=== PATIENT | female | born 1960 | race Caucasian/White ===

== ENCOUNTER 2023-06-10 18:17 | Emergency (ER) | payer BC, SELFPAY | END 2023-06-10 19:25 | disposition home or self-care (01) | LOC: NAV ERS 18:17 | DX: R61 Generalized hyperhidrosis (principal); R25.1 Tremor, unspecified; E11.649 Type 2 diabetes mellitus with hypoglycemia without coma; I10 Essential (primary) hypertension; E78.00 Pure hypercholesterolemia, unspecified; E03.9 Hypothyroidism, unspecified; K21.9 Gastro-esophageal reflux disease without esophagitis; Z79.01 Long term (current) use of anticoagulants; Z79.899 Other long term (current) drug therapy; Z79.84 Long term (current) use of oral hypoglycemic drugs; Z86.711 Personal history of pulmonary embolism; Z86.718 Personal history of other venous thrombosis and embolism | CPT/HCPCS: 36416; 93005 ==

== ENCOUNTER 2023-12-06 19:01 | Emergency (ER) | payer BC ==
[2023-12-06] MEDS ORDERED: Lidocaine 1% (PF) 30 ML VIAL ONE (19:28)
[2023-12-06] MEDS ORDERED: Bacitracin 1 PK ONE (20:00)
== END 2023-12-06 20:11 | disposition home or self-care (01) ==
LOC: NAV ERS 19:01
DX: S61.012A Laceration without foreign body of left thumb without damage to nail, initial encounter (principal); E11.9 Type 2 diabetes mellitus without complications; I10 Essential (primary) hypertension; E03.9 Hypothyroidism, unspecified; E78.00 Pure hypercholesterolemia, unspecified; Z79.01 Long term (current) use of anticoagulants; Z79.899 Other long term (current) drug therapy; Z79.84 Long term (current) use of oral hypoglycemic drugs
CPT/HCPCS: 12001; 99282; J2001

== ENCOUNTER 2024-01-20 13:37 | Emergency (ER) | payer BC ==
[2024-01-20 15:08] LABS: INR-International Normal Ratio 1.9; Prothrombin Time 22.2 sec (12.0-14.7)
== END 2024-01-20 15:50 | disposition short-term general hospital (02) ==
LOC: NAV ERS 13:37
DX: M79.604 Pain in right leg (principal); E11.9 Type 2 diabetes mellitus without complications; I10 Essential (primary) hypertension; E78.00 Pure hypercholesterolemia, unspecified; E03.9 Hypothyroidism, unspecified; K21.9 Gastro-esophageal reflux disease without esophagitis; Z79.899 Other long term (current) drug therapy; Z79.84 Long term (current) use of oral hypoglycemic drugs; Z79.01 Long term (current) use of anticoagulants
CPT/HCPCS: 85610; 99284